=== PATIENT | female | born 1955 | race Caucasian/White ===

== ENCOUNTER 2018-10-18 06:57 | Day surgery (SDC) | payer OTHER ==
[2018-10-18] MEDS ORDERED: PROPOFOL 40 ML (08:47)
== END 2018-10-18 14:07 | disposition home or self-care (01) ==
LOC: GIL 06:57
DX: Z12.11 Encounter for screening for malignant neoplasm of colon (principal); D12.7 Benign neoplasm of rectosigmoid junction; K64.4 Residual hemorrhoidal skin tags; I10 Essential (primary) hypertension; E11.9 Type 2 diabetes mellitus without complications; E78.5 Hyperlipidemia, unspecified; Z79.84 Long term (current) use of oral hypoglycemic drugs; Z79.4 Long term (current) use of insulin
CPT/HCPCS: 45385; 82962; 88305; 88342